=== PATIENT | female | born 1990 | race Caucasian/White ===

== ENCOUNTER 2018-01-06 05:48 | Emergency (ER) | payer MEDICAID ==
[~2018-01-06] VITALS: Ht 154.9 cm; Wt 54.5 kg
[~2018-01-06 05:48] MED LIST: ONDA8TAB9 PO; PHEN-786 PO
[2018-01-06 05:52] VITALS: BP 119/72
[2018-01-06] MEDS ORDERED: SULF1TAB49 PO (06:17)
[2018-01-06] MEDS ORDERED: CEPH-572 PO (06:17)
[2018-01-06] MEDS ORDERED: sulfamethoxazole/trimethoprim DS (800/160mg) tablet PO ONE (06:20)
[2018-01-06] MEDS ORDERED: cephalexin 250mg capsule PO ONE (06:20)
== END 2018-01-06 06:35 | disposition home or self-care (01) ==
LOC: ER 05:48
DX: L03.116 Cellulitis of left lower limb (principal); F12.90 Cannabis use, unspecified, uncomplicated; F15.90 Other stimulant use, unspecified, uncomplicated; Z79.2 Long term (current) use of antibiotics; Z79.899 Other long term (current) drug therapy
CPT/HCPCS: 99283

== ENCOUNTER 2019-03-17 17:55 | Emergency (ER) | payer MEDICAID ==
[~2019-03-17] VITALS: Ht 154.9 cm; Wt 54.5 kg
[2019-03-17 18:28] VITALS: BP 110/73
[2019-03-17] MEDS ORDERED: proparacaine 0.5% ophthalmic drops 15ml EACHEYE ONE (20:00)
[2019-03-17] MEDS ORDERED: ERYT1OIN6 EACHEYE (20:35)
== END 2019-03-17 20:50 | disposition home or self-care (01) ==
LOC: ER 17:56
DX: H00.014 Hordeolum externum left upper eyelid (principal); H10.9 Unspecified conjunctivitis; F12.90 Cannabis use, unspecified, uncomplicated; F15.90 Other stimulant use, unspecified, uncomplicated; F10.99 Alcohol use, unspecified with unspecified alcohol-induced disorder; Z86.2 Personal history of diseases of the blood and blood-forming organs and certain disorders involving the immune mechanism; Z79.899 Other long term (current) drug therapy; Y90.9 Presence of alcohol in blood, level not specified
CPT/HCPCS: 99283

== ENCOUNTER 2019-04-14 01:32 | Emergency (ER) | payer MEDICAID ==
[~2019-04-14] VITALS: Ht 154.9 cm; Wt 55.0 kg
[2019-04-14 01:34] VITALS: BP 124/81
[2019-04-14] MEDS ORDERED: CEPH500C5 PO (01:58)
[2019-04-14] MEDS ORDERED: cephalexin 250mg capsule PO ONE (02:00)
== END 2019-04-14 02:32 | disposition home or self-care (01) ==
LOC: ER 01:32
DX: S61.412A Laceration without foreign body of left hand, initial encounter (principal); F17.210 Nicotine dependence, cigarettes, uncomplicated; F12.90 Cannabis use, unspecified, uncomplicated; F15.90 Other stimulant use, unspecified, uncomplicated; Z59.0 Homelessness; Z79.2 Long term (current) use of antibiotics; Z79.899 Other long term (current) drug therapy; W26.0XXA Contact with knife, initial encounter; Y93.89 Activity, other specified; Y92.89 Other specified places as the place of occurrence of the external cause; Y99.8 Other external cause status
CPT/HCPCS: 99283

== ENCOUNTER 2022-01-03 00:53 | Emergency (ER) | payer MEDICAID ==
[~2022-01-03] VITALS: Ht 154.9 cm; Wt 56.8 kg
[2022-01-03 01:06] VITALS: BP 142/97
[2022-01-03] MEDS ORDERED: TETanus/Pertussis (Acell)/Diphther VAC/PF (Tdap-Adult) 0.5ml syringe IMVAC ONE (01:10)
== END 2022-01-03 01:43 ==
LOC: ER 00:53
DX: T75.4XXA Electrocution, initial encounter (principal); Z02.89 Encounter for other administrative examinations; F17.200 Nicotine dependence, unspecified, uncomplicated; F12.10 Cannabis abuse, uncomplicated; F15.10 Other stimulant abuse, uncomplicated; D64.9 Anemia, unspecified; Z59.00 Homelessness unspecified; W86.8XXA Exposure to other electric current, initial encounter; Y93.89 Activity, other specified; Y92.89 Other specified places as the place of occurrence of the external cause; Y99.8 Other external cause status
CPT/HCPCS: 90471; 90715; 99283

== ENCOUNTER 2024-11-28 13:28 | Emergency (ER) | payer MEDICAID ==
[~2024-11-28] VITALS: Ht 154.9 cm; Wt 70.5 kg
[2024-11-28 13:34] VITALS: TEMP 98.2
[2024-11-28 13:54] LABS: MEAN PLATELET VOLUME 7.7 FL (7.4-10.4); RED CELL DISTRIBUTION WIDTH 14.0 % (11.5-14.5)
[2024-11-28 14:07] LABS: CREATININE 0.67 MG/DL (0.40-0.90); TOTAL CARBON DIOXIDE 25.4 MMOL/L (24-32); eCRCL 88 ML/MIN; eGFR > 90 ML/MIN
--- NOTE | 2024-11-28 15:17 | Physician Documentation ---
History of Present Illness Chief Complaint: Abdominal Pain Stated Complaint: HERNIA Time Seen by MD: 14:44 Primary Medical Doctor: NONE Mode of Arrival: Ambulatory HPI 44-year-old female presents to the ED with acute midline supra-umbilical pain. Says she was recently diagnosed with a an umbilical hernia while in [facility]. States she is still passing gas and having bowel movements but has severe abdominal pain in his unable to reduce the suspected hernia. Denies any nausea vomiting denies any fevers she states the pain is worse when sitting up. Day of Onset: Nov 28, 2024 Medication Reconciliation Allergies: Coded Allergies: No Known Allergies (Unverified , 01/03/22) Scheduled Ondansetron (Zofran Odt), 4 MG PO QID Phenazopyridine Hcl (Pyridium tablet), 200 MG PO TID Past Medical History Past Medical History: Anemia Past Surgical History: no surgical history Alcohol Use: Heavy Drug Use: marijuana, methamphetamine Lives In: Homeless Review of Systems All Other Systems at this time: Reviewed and Negative ROS As stated above in the HPI, otherwise all systems are reviewed and negative. Physical Exam Vital Signs: Temperature: 98.2, Source: Temporal, Heart Rate: 82, Respiratory Rate: 18, BP: 155/90, Pulse Oximetry: 93, Weight: 70.500 Oxygen Flow Rate: 0 Physical Exam General: Alert, no apparent distress. Respiratory: Lungs clear, no respiratory distress. Chest: No accessory muscle use. Cardiovascular: Regular rate and rhythm, no murmurs. Gastrointestinal: Soft, nontender, nondistended. Bowels sounds present. Notable non reducible supraumbilical hernia . Neurologic: Oriented x4. Psychiatric: Normal mood and affect. Skin: Normal color, warm and dry. No edema, no ecchymosis. Procedures Procedures Procedural Sedation: ASA Score: ASA I A normal healthy patient Time: 17 50 Informed consent was given to the patient. Indication, alternatives, and potential complications were explained. A nurse was present at the bedside for the entire procedure. See moderate sedation flowsheet for pre- procedure assessment, and pre-and post-procedure vitals. Risks and benefits including aspiration, apnea, anoxia, and were discussed with the patient. Timeout was performed at 17 50. Confirmed patient, side, lo cation. Patient was on cardiovascular monitor with end-tidal and oxygen. Suction was available and on. [id number] was ready and prepared. Consent in chart. PIV in with fluids running. ETCO2 and NC connected to patient. Suction was turned on with Yankauer attached. BVM attached to wall oxygen. Oral/nasal airways, Mac/Cisse blades and ET tubes with stylets available. Reversal meds prepared including Narcan 0.4 mg if opioid was being used, not drawn up Epinephrine, cardiac syringe (1:10,000) also available but unopened. Treatment: Bolus ketamine 35 mg and propofol 60 mg, both IV for full sedation The patient was monitored with pulse oximetry and cardiac and blood pressure monitor. Bolus ketamine 35 mg and propofol 60 mg, both IV for full sedation were used IV and moderate sedation was achieved. There were no complications and the patient was stable throughout the procedure and at time of discharge. Total time of procedure was 20 minutes. Progress Results/Orders Results/Orders Orders - HASEEB SEXTON SUPPLY ROOM CLERK Ultrasound Of Abdomen (11/28/24 14:47) Vital Signs 11/28/24 11/28/24 13:34 14:25 Temp 98.2 Pulse 82 Resp 18 B/P (MAP) 155/90 Pulse Ox 93 O2 Flow Rate 0 Laboratory Tests Test 11/28/24 13:47 White Blood Count 8.7 Red Blood Count 4.97 Hemoglobin 13.0 Hematocrit 39.2 Mean Corpuscular Volume 78.8 Mean Corpuscular Hemoglobin 26.2 L Mean Corpuscular Hemoglobin Concent 33.3 Red Cell Distribution Width 14.0 Platelet Count 359 Mean Platelet Volume 7.7 Neutrophils (%) (Auto) 56.8 Lymphocytes (%) (Auto) 32.5 Monocytes (%) (Auto) 8.3 Eosinophils (%) (Auto) 1.6 Basophils (%) (Auto) 0.8 Neutrophils # (Auto) 5.0 Lymphocytes # (Auto) 2.8 Monocytes # (Auto) 0.7 Eosinophils # (Auto) 0.1 Basophils # (Auto) 0.1 CBC Comment Sodium Level 139 Potassium Level 3.6 Chloride Level 105 Carbon Dioxide Level 25.4 Anion Gap 9 Blood Urea Nitrogen 12 Creatinine 0.67 Estimated GFR/1.73 m2 > 90 BUN/Creatinine Ratio 17.9 Glucose Level 97 Calcium Level 9.0 Total Bilirubin 0.4 Aspartate Amino Transf (AST/SGOT) 20 Alanine Aminotransferase (ALT/SGPT) 24 Alkaline Phosphatase 90 Total Protein 7.4 Albumin 3.8 Globulin 3.6 Albumin/Globulin Ratio 1.1 Lipase 19 Chemistry Comments Medical Decision Making Findings I was able to reduce the supra umbilical hernia for the most part however there is a remaining nodule which requires evaluation by on-call surgeon Dr. Ramey Patient is hemodynamically stable and her laboratory values are unremarkable. Showing no signs of sepsis Dr Ramey will complete the remaining aspect of the reduction via mod sedation Differential Dx:Considerations: Include: AAA, -Complete, - Incomplete, -Inevitable, -Missed, -Threatened, Abruptio placentae, Angina/DC, Aortic dissection, Appendicitis, Bowel obstruction, Cholangitis, Cholelithasis, Constipation, Diverticular disease, Esophageal rupture, Esophagitis, Gastritis/PUD, Gastroenteritis, GI hemorrhage, Hernia, Hepatitis, Inflammatory BD, Ischemic bowel, Ovarian cyst/torsion, Pancreatitis, PID, Porphyria, Trauma, intraabdominal, Urinary obstruction, Urinary tract inf ection, Urolithiasis, Other Departure Disposition: 01 HOME / SELF CARE / HOMELESS Impression: Primary Impression: Umbilical hernia Condition: Stable Referrals: NO PRIMARY CARE PROVIDER (PCP) Education Educated: Patient Educated regarding: diagnosis Signature Scribe Signature: tr Attestation: Scribed for Haseeb Sexton Group Reservations Coordinator by Haseeb Sylvester NP . 11/28/24 16:58 HASEEB SEXTON NP Nov 28, 2024 15:17 ADAM CARRILLO MD Nov 28, 2024 18:05
--- NOTE | 2024-11-28 15:48 | RADIOLOGY REPORT ---
Technique: Real-time ultrasound imaging of the abdomen was performed with grayscale and color Doppler. Indication: umbilical hernia Comparison: None Findings: There is an air-fluid containing structure in the paraumbilical region measuring 2.5 x 2.6 cm which appears to demonstrate movement/ peristalsis suggesting bowel loop. There is adjacent edema. These findings are concerning for incarcerated / strangulated hernia, bowel obstruction. Recommend CT abdomen pelvis and surgical consultation Impression: As above
--- NOTE | 2024-11-28 16:40 | RADIOLOGY REPORT ---
Indication: umbilical hernia, ABD PAIN, POSS INCARCERATED HERNIA Technique: CT axial images of the abdomen and pelvis are obtained with intravenous contrast. Coronal and sagittal reformats were obtained. Radiation Dose Information: CTDI volume is 13 mGy. Dose-length product is 640 mGy*cm Comparison: Abdominal ultrasound from today FINDINGS: Lung bases demonstrate no pleural effusion. Adrenal glands, spleen, pancreas and liver unremarkable in shape. No CT evidence for cholelithiasis. No hydronephrosis /nephrolithiasis. Stomach is partially distended. Small bowel loops are relatively nondilated. Moderate volume stool within the colon. Normal appendix. There is a periumbilical hernia containing a short segment of small bowel measuring 3.6 x 4.3 cm. There is inflammatory stranding and a small amount of edema within the hernia sac. Narrow neck measuring 1.4 cm Abdominal aorta normal in caliber. Bladder partially distended. No free pelvic fluid. No inguinal lymphadenopathy. No aggressive osseous process. IMPRESSION: Periumbilical hernia containing short segment small bowel measuring 4.3 x 3.6 cm with adjacent stranding and mild edema, raising concern for incarceration / strangulation. Recommend stat surgical consultation. Other findings as decribed
[2024-11-28] MEDS: propofol 10mg/ml 20ml vial IV ONE (17:48)
--- NOTE | 2024-11-28 18:13 | CONSULTATION REPORT ---
Consult Providers to CC ~ History of Present Illness Reason for Admit\Complaint: Patient presented to ER with abdominal pain History of Present Illness 34-year-old female, presented on parole presented with severe abdominal pain. Signs and symptoms began approximately 2-3 hours prior to ER admission. CT scan demonstrated findings consistent with supraumbilical hernia involving portion of small bowel. Mild edema. Patient was aware and 1st diagnosed with umbilical hernia approximately 3 months ago while in senior care. Until today, she has been doing well. Currently seen, denies vomiting but is a little nauseated. She is able to have normal bowel movements. Denies any fever, chills. Allergies: Coded Allergies: No Known Allergies (Unverified , 01/03/22) Home Medications Home Medications Active Pyridium tablet (Phenazopyridine HCl) 100 Mg Tablet 200 Mg PO TID Zofran Odt (Ondansetron) 8 Mg Tab.rapdis 4 Mg PO QID Past Surgical History Surgical History Comment Patient denies any significant surgical history. Past Social History Social History Comment Currently on parole from senior care. ROS ROS All within normal limits except HPI Exam Vitals: Vital Signs Date Time Temp Pulse Resp B/P (MAP) Pulse Ox O2 Delivery O2 Flow Rate FiO2 11/28/24 17:51 82 12 136/95 (109) 100 2.0 11/28/24 13:34 98.2 General: Mild distress with abdominal pain. Appears to have poor hygiene HEENT: NC/AT,PERRLA, no nasal discharge, moist mucosa Neck: Supple, nontender Chest: Clear to auscultation bilaterally Cardiovascular: Regular rate and rhythm Abdomen: Soft, nondistended, + supraumbilical hernia with difficulty reducing, +tender Extremities: No clubbing, cyanosis or edema Central Nervous System: Alert and oriented x3, no gross or focal deficits Musculoskeletal: FROM, no muscle weakness identified Skin: Warm, dry, no diaphoresis Diagnostic Data Last Recorded Lab Results: 11/28/24 1347 11/28/24 1347 Diagnostic Data: Indication: umbilical hernia, ABD PAIN, POSS INCARCERATED HERNIA Technique: CT axial images of the abdomen and pelvis are obtained with intravenous contrast. Coronal and sagittal reformats were obtained. Radiation Dose Information: CTDI volume is 13 mGy. Dose-length product is 640 mGy*cm Comparison: Abdominal ultrasound from today FINDINGS: Lung bases demonstrate no pleural effusion. Adrenal glands, spleen, pancreas and liver unremarkable in shape. No CT evidence for cholelithiasis. No hydronephrosis /nephrolithiasis. Stomach is partially distended. Small bowel loops are relatively nondilated. Moderate volume stool within the colon. Normal appendix. There is a periumbilical hernia containing a short segment of small bowel measuring 3.6 x 4.3 cm. There is inflammatory stranding and a small amount of edema within the hernia sac. Narrow neck measuring 1.4 cm Abdominal aorta normal in caliber. Bladder partially distended. No free pelvic fluid. No inguinal lymphadenopathy. No aggressive osseous process. IMPRESSION: Periumbilical hernia containing short segment small bowel measuring 4.3 x 3.6 cm with adjacent stranding and mild edema, raising concern for incarceration / strangulation. Recommend stat surgical consultation. Problems: (1) Umbilical hernia Status: Acute Assessment & Plan: Assessment: Supraumbilical hernia with small bowel involvement. Plan: Manual reduction was not possible without any significant relaxation by patient. Manual reduction under sedation is planned. After informed consent was obtained, adequate sedation with propofol and ketamine was administered by ER physician. Manual reduction of supraumbilical hernia was successful. Patient tolerated procedure well. Additional Plan Further plan is to have elective umbilical hernia repair with mesh. Sepsis Screening Reassessment Date: Nov 28, 2024 MARIAH SOSA DO Nov 28, 2024 18:13
[2024-11-28] MEDS: normal saline 1000ML IV soln IVB ONE (18:33)
[2024-11-28 19:27] VITALS: BP 124/80; PULSE 92; RESP 16; O2SAT 100
== END 2024-11-28 19:51 | disposition home or self-care (01) ==
LOC: ER 13:29
DX: K42.9 Umbilical hernia without obstruction or gangrene (principal); D64.9 Anemia, unspecified; F12.90 Cannabis use, unspecified, uncomplicated; F15.90 Other stimulant use, unspecified, uncomplicated; Z79.899 Other long term (current) drug therapy; Z59.00 Homelessness unspecified
CPT/HCPCS: 36415; 74176; 76705; 80053; 83690; 85025; 96360; 99152; 99285; J2704; J3490; J7030